=== PATIENT | female | born 1985 | race Asian ===

== ENCOUNTER → 2021-08-05 | Day surgery (SDC) | payer OTHER ==
[~2021-08-05] VITALS: Ht 170.2 cm; Wt 81.0 kg
[~2021-08-05] MED LIST: ALBU2.5V8 INH; ATOR40TA59 PO; HYDROmorphone 2 MG/ML INJ. IVP PRN; IV RINGERS,LACTATED 1000ML 1,000 ML IV SCH; LIDOCAINE 2% PF 5 ML VIAL. ONE; LISI2.5T12 PO; METF500T16 PO; MONT10TA49 PO; MORPHINE SULFATE 2 MG/ML INJ. IVP PRN; PANT40TA77 PO; PROCHLORPERAZINE 10 MG/2 ML VIAL. IVP PRN; PROPOFOL 10 MG/ML (20ML) VIAL. IV ONE; TOPI25TA7 PO; fentaNYL PF VIAL 100 MCG/2 ML VIAL IVP PRN
[2021-08-05 10:19] VITALS: BP 119/74
[2021-08-05 11:28] VITALS: BP 126/81
--- NOTE | 2021-08-09 16:10 | PATHOLOGY ---
[facility] Accession Number: [id number] . 01 Material submitted: . sigmoid colon - SIGMOID COLON POLYP . 01 Clinical history: . RECTAL BLEED . 02 Diagnosis: Colon biopsies, sigmoid colon polyp: - Hyperplastic polyp. ([facility]; 08/09/2021) [facility] 08/09/2021 1244 Local . 02 Comment: There are no adenomatous changes or evidence of malignancy. ([facility]; 08/09/2021) . 02 Electronically signed: . Yoni Guerra MD, Pathologist NPI- [id number] . 01 Gross description: . The specimen is received in formalin, labeled "Khalif, Wee, sigmoid colon polyp". Received is a single segment of pale carney tissue measuring 0.4 cm in maximum dimensions. The specimen is entirely submitted in cassette A1. ([facility]; 08/05/2021) NRI/NRI 08/05/20212023 Local . 02 Pathologist provided ICD-10: K63.5 . 02 CPT . 333279 Specimen Comment: A courtesy copy of this report has been sent to [phone] Specimen Comment: [phone] Specimen Comment: Report sent to / DR CENTENO Performed at: 01 [facility] [address], [place] [id number] MD Brandon Burris MD Phone: [phone] Performed at: 02 [facility] [address] [place], [place] [id number] MD Yoni Guerra MD Phone: [phone]
== END | disposition home or self-care (01) ==
LOC: ENDOS 09:25
PROVIDERS: ATTEND Internal Medicine Gastroenterology
DX: K62.5 Hemorrhage of anus and rectum (principal); K92.1 Melena; K63.5 Polyp of colon; K64.0 First degree hemorrhoids; K63.89 Other specified diseases of intestine; I10 Essential (primary) hypertension; E78.00 Pure hypercholesterolemia, unspecified; J45.909 Unspecified asthma, uncomplicated; K21.9 Gastro-esophageal reflux disease without esophagitis; E11.9 Type 2 diabetes mellitus without complications; Z79.84 Long term (current) use of oral hypoglycemic drugs; Z79.899 Other long term (current) drug therapy
CPT/HCPCS: 45380; 81025; 82962; 88305; J2704